=== PATIENT | male | born 1980 | race Two or more races ===

== ENCOUNTER 2025-09-17 08:33 | Inpatient (IN) | payer MEDICAID, SELFPAY ==
[2025-09-17] VITALS (7 sets, daily range): BP systolic 96–121; BP diastolic 55–73; PULSE 56–88; RESP 15–18; TEMP 36.7–37.2; O2SAT 93–99; BMI 29.0
--- NOTE | 2025-09-17 | XR_ITS ---
Examination: MRI brain without intravenous contrast. Date and time of exam: September 17, 2025, 1600 hours INDICATIONS: Seizure episode today Technique: Multiple axial and sagittal images of the brain obtained. Siemens high-resolution 1.5 Alejandra short bore scanners utilized. Sagittal sections, T1-weighted, TR 500, TE 14, are performed. Axial sections proton-density and T2-weighted have been obtained. Inversion recovery axial images, TR 9, 260, TE 111, TI 2500. Diffusion weighted images, axial sections, TR 4800, TE 128, B value 1000 Axial sections, ADC map, TR 4800, TE 128 Findings: Enlargement of the sella turcica is not present. The optic chiasm and infundibular are not remarkable. Prepontine and interpeduncular cisterns are not enlarged. There is no localized enlargement of the medulla or brice. Fourth ventricle and cerebellar tonsils appear normal in position. No subacute area of hemorrhage density is seen. Mass in the cerebellopontine angle region is not evident. Globes symmetrical. Orbital musculature including medial lateral rectus muscles do not exhibit abnormality. Diffusion-weighted images demonstrate no focus of restricted diffusion. Increased white matter signal evident, multiple punctate foci of increased signal in the white matter Mass effect upon the ventricular system is not identified. Impression: Negative for acute hemorrhage mass effect or midline shift No acute infarct. Multiple punctate foci increased signal in the white matter, demyelinating disease
--- NOTE | 2025-09-17 08:39 | PD.EDSEIZ ---
ED Seizures RME/HPI General Chief Complaint: Seizure Stated Complaint: SEIZURES Time Seen by Provider: 09/17/25 08:40 Arrival date/time: 09/17/25 08:33 RME / HPI RME / HPI Narrative: DR. SELF MAIN ED EVALUATION: 45-year-old male with no prior medical history and no history of seizures presents to the Emergency Department after a witnessed seizure at work. The patient?s witnessed the event, stating that as soon as he started working, he grabbed his head, became unresponsive, and began shaking. She assisted him to the ground and noted generalized shaking lasting 3?4 minutes, during which he bit his tongue, resulting in bleeding. No trauma aside from the tongue bite. Per , the patient stopped breathing for approximately 2?3 minutes, and she performed chest compressions until EMS arrived, no known loss of pulses. EMS found the patient with pulses and postictal. The patient is currently awake, alert, and complaining of nausea and dizziness. Denies headache, vision changes, chest pain, shortness of breath, recent illness, drug use, or head trauma. No daily medications and no known allergies. Related Data Allergies Allergy/AdvReac Type Severity Reaction Status Date / Time No Known Allergies Allergy Unverified 09/17/25 17:05 Review of Systems Review of Systems Systems Reviewed: All systems reviewed, normal except as documented ED Exam Narrative Physical exam: GENERAL APPEARANCE: alert and oriented x 4, well-developed, well-nourished, no acute distress VITALS: All vitals were reviewed and the pulse ox is 98% on room air, which is normal according to my interpretation. HEENT: Normocephalic, atraumatic; pupils equal, round, reactive to light; EOMI; mucous membranes pink, moist; oropharynx clear NECK: Supple LUNGS: CTABL; no wheezes, no rales, no rhonchi HEART: Regular rate and rhythm; 1/6 systolic murmur heard at the left upper sternal border (LUSB); no gallops or rubs ABDOMEN: non distended; normal BS; soft, no tenderness, no guarding, no rebound; no masses, no organomegaly, no hernia BACK: no CVA tenderness EXTREMITIES: atraumatic; no edema NEUROLOGIC: awake; alert and oriented x4; cranial nerves II-XII grossly intact; no focal sensory or motor deficits PSYCHIATRIC: appropriate mood and affect SKIN: warm, dry, normal color; no rashes Course Quality Measures none Orders Category Date Time Status Admit to Inpatient Status Routine Admission 09/17/25 16:51 Active Patient Condition Routine Admission 09/17/25 16:51 Ordered Aspiration precautions ONCE Care 09/17/25 16:58 Active 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 NOW Care 09/17/25 08:59 Active EKG (ED ONLY) *Do not use* NOW Care 09/17/25 08:40 Completed MRI Screening NOW Care 09/17/25 15:54 Active MRI Screening NOW Care 09/17/25 16:25 Active Neuro Check Q4H START 00 Care 09/17/25 16:56 Active Notify provider NEEDED Care 09/17/25 16:51 Active Seizure precautions NOW Care 09/17/25 16:58 Active Consult to Neurology / Tele-Neurology Stat Cons 09/17/25 15:[address] head/brain wo con Stat Exams 09/17/25 09:00 Completed EKG (ED Only) Stat Exams 09/17/25 08:40 Draft MR head/brain wo con Stat Exams 09/17/25 Taken XR chest 1V portable Stat Exams 09/17/25 08:59 Completed Alcohol, Blood Medical Stat Lab 09/17/25 09:34 Completed B-Type Natriuretic Peptide Stat Lab 09/17/25 09:34 Completed CBC AM DRAW Lab 09/18/25 05:00 Ordered CBC AM DRAW Lab 09/19/25 05:00 Ordered CBC AM DRAW Lab 09/20/25 05:00 Ordered CBC Stat Lab 09/17/25 09:34 Completed Comprehensive Metabolic Panel AM DRAW Lab 09/18/25 05:00 Ordered Comprehensive Metabolic Panel AM DRAW Lab 09/19/25 05:00 Ordered Comprehensive Metabolic Panel AM DRAW Lab 09/20/25 05:00 Ordered Comprehensive Metabolic Panel Stat Lab 09/17/25 09:34 Completed Drug Screen,Urine Stat Lab 09/17/25 09:27 Completed Lipase Stat Lab 09/17/25 09:34 Completed Lipid Panel AM DRAW Lab 09/18/25 05:00 Ordered Lipid Panel AM DRAW Lab 09/19/25 05:00 Ordered Lipid Panel AM DRAW Lab 09/20/25 05:00 Ordered Magnesium AM DRAW Lab 09/18/25 05:00 Ordered Magnesium AM DRAW Lab 09/19/25 05:00 Ordered Magnesium AM DRAW Lab 09/20/25 05:00 Ordered Magnesium Stat Lab 09/17/25 09:34 Completed Partial Thromboplastin Time Stat Lab 09/17/25 09:34 Completed Phosphorous AM DRAW Lab 09/18/25 05:00 Ordered Phosphorous AM DRAW Lab 09/19/25 05:00 Ordered Phosphorous AM DRAW Lab 09/20/25 05:00 Ordered Prothrombin Time with INR Stat Lab 09/17/25 09:34 Completed Troponin I Stat Lab 09/17/25 09:34 Completed Acetaminophen Tab [Tylenol Tab] Med 09/17/25 16:51 Active 650 mg PO Q6H PRN Acetaminophen Tab [Tylenol Tab] Med 09/17/25 16:56 Active 650 mg PO Q6H PRN HYDROcodone*/APAP 5/325 [Cameron 5/325] Med 09/17/25 16:56 Active 1 tab PO Q4HR PRN LORazepam [Ativan Inj] Med 09/17/25 15:19 Discontinued 2 mg .ROUTE .STK-MED ONE LORazepam [Ativan Inj] Med 09/17/25 17:04 Active 2 mg IVP Q5MIN PRN LORazepam [Ativan Inj] Med 09/17/25 15:23 Discontinued 2 mg IVP X1 ONE LORazepam [Ativan Inj] Med 09/17/25 17:03 Discontinued 2 mg IVP X1 ONE Ondansetron Inj [Zofran Inj] Med 09/17/25 16:56 Active 4 mg IVP Q6H PRN Ondansetron Inj [Zofran Inj] Med 09/17/25 09:00 Discontinued 4 mg IVP X1 ONE levETIRAcetam INJ [Keppra Inj] Med 09/17/25 15:24 Discontinued 1,000 mg IVP X1 ONE levETIRAcetam INJ [Keppra Inj] Med 09/17/25 16:09 Discontinued 1,000 mg IVP X1 ONE Code Status Routine Oth 09/17/25 16:51 Ordered EEG Awake and Drowsy Routine RT 09/17/25 15:25 Ordered Vital Signs Vital signs: Vital Signs Temperature 98.2 F 09/17/25 08:41 Pulse Rate 62 09/17/25 08:41 Respiratory Rate 18 09/17/25 08:41 Blood Pressure 104/62 09/17/25 08:41 Pulse Oximetry (%) 98 09/17/25 08:41 Oxygen Delivery Method Room Air 09/17/25 08:41 Seizure MDM Narrative MDM Narrative:: I, Christine Booker, am scribing for and in the presence of Dr. Self. 1520: Patient was going to be discharged when he had another seizure. Will be admitted. Patient data External records reviewed:: EMS form Clinical information provided by:: patient, EMS and spouse Social determinants that could affect healthcare access:: none Patient has the following chronic illnesses:: Denies any PMHx, surgeries, daily medications, or known allergies. No history of seizures. How is presenting disease/condition affected by chronic disease/condition?: no chronic disease Evaluation data The following diagnostics were reviewed and interpreted by me:: lab results, radiology exam(s) and EKG tracing(s) (My interpretation: EKG performed at 0848 hours, sinus rhythm, rate 68, no acute ischemic changes) Lab and/or radiology exams considered but not ordered:: none Interpretation Summary: Procedure(s): CT head/brain wo con Accession Number(s): [id number] cc: Dieudonne Flor MD; Gaye Self MD; Andrey Jauregui PA-C~ Examination: CT brain head without contrast. 2-D sagittal coronal reconstructions Date and time of exam: September 17, 2025, 0915 hours INDICATIONS: Seizure this morning with vomiting CTDI: vol (mGy): 51.5 DLP: (mGycm): 973 Technique: Multiple CT axial sections of the brain have been obtained, 5 mm slice thickness. Contrast has not been administered. 2-D sagittal, coronal reconstructions have been obtained Low dose protocols were performed. One or more of the following dose reduction techniques were used; automated exposure control, adjustment of the mA and/or KV according to patient size, use of iterative reconstruction technique. Findings: No significant ventricular enlargement. Intra-axial or extra-axial hemorrhage density is not seen. No mass effect or midline shift Basal cisterns are not remarkable. Fourth ventricle is midline. Cranial vault intact. Significant chronic sinusitis Impression: Negative for acute hemorrhage, mass effect or midline shift As clinically warranted, consider elective brain MRI follow-up, seizure protocol, pre and postcontrast Dictated By: Dieudonne Flor MD Procedure(s): XR chest 1V portable Accession Number(s): [id number] cc: Dieudonne Flor MD; Gaye Self MD; Andrey Jauregui PA-C~ EXAMINATION: AP chest single view TECHNIQUE: AP portable upright chest single view Date and time: September 17, 2025, 0927 hours, comparison May 24, 2015. INDICATIONS: Chest pain shortness of breath today. FINDINGS: Minor prominence left ventricle. No pneumonia or pulmonary edema. The osseous structures are intact. IMPRESSION: No pneumonia or pulmonary edema Dictated By: Dieudonne Flor MD Medications / Prescriptions Medications or Prescriptions considered but not ordered:: none Medication administrations:: Medication Administration History Acetaminophen (Acetaminophen 325 Mg Tablet) 650 mg PO Q6H PRN PRN Reason: Fever >101.5 Stop: 10/17/25 16:50 Acetaminophen (Acetaminophen 325 Mg Tablet) 650 mg PO Q6H PRN PRN Reason: PAIN SCALE 1-3 (mild Stop: 10/17/25 16:55 Hydrocodone Bitart/Acetaminophen (Hydrocodone/Apap 5/325 Tablet) 1 tab PO Q4HR PRN PRN Reason: PAIN SCALE 4-6 (Moderate Stop: 09/22/25 16:55 Lorazepam (Lorazepam 2 Mg/Ml Vial) 2 mg IVP Q5MIN PRN PRN Reason: seizure Ondansetron HCl (Ondansetron Inj 2 Mg/Ml Inj 2 Ml) 4 mg IVP Q6H PRN; Protocol PRN Reason: NAUSEA OR VOMITING Stop: 10/17/25 16:55 Discontinued Medications Levetiracetam (Levetiracetam Inj 100 Mg/Ml Vial 5ml) 1,000 mg IVP X1 ONE Stop: 09/17/25 15:25 Last Admin: 09/17/25 15:48 Dose: 1,000 mg Documented By: ED Levetiracetam (Levetiracetam Inj 100 Mg/Ml Vial 5ml) 1,000 mg IVP X1 ONE Stop: 09/17/25 16:10 Last Admin: 09/17/25 16:19 Dose: 1,000 mg Documented By: ED Lorazepam (Lorazepam 2 Mg/Ml Vial) Confirm Administered Dose 2 mg .ROUTE .STK-MED ONE Stop: 09/17/25 15:20 Last Admin: 09/17/25 15:25 Dose: Not Given Documented By: LF Non-Admin Reason: Duplicate Medication on eMAR Lorazepam (Lorazepam 2 Mg/Ml Vial) 2 mg IVP X1 ONE Stop: 09/17/25 15:24 Last Admin: 09/17/25 15:24 Dose: 2 mg Documented By: LF Lorazepam (Lorazepam 2 Mg/Ml Vial) 2 mg IVP X1 ONE Stop: 09/17/25 17:04 Ondansetron HCl (Ondansetron Inj 2 Mg/Ml Inj 2 Ml) 4 mg IVP X1 ONE; Protocol Stop: 09/17/25 09:01 Last Admin: 09/17/25 09:28 Dose: 4 mg Documented By: ED see above if any Consultations Consultation(s) initiated? (list below): Yes Consultation #1 (Physician, Specialty, Details): Discussed test HPI, PMHx, lab, radiology results and/or management with resident working with the hospitalist. Will admit for further evaluation and management. Accepts patient for admission. Time: 16:51 Diagnosis Seizure Differential Diagnosis: other (New-onset seizure, intracranial pathology (e.g., mass or bleed), and syncope with convulsive activity.) Most likely diagnosis given after review of the tests above:: New onset seizures Admission Indicated Admission indicated?: indicated Admission Request Was there a request for admission?: Yes Admission Attestation Admission request attestation: Discussed case with [] from Hospitalist service regarding admission. Discussed patients ED course, exam findings, labs, and radiology results. The Hospitalist [agrees,declines] to accept the patient for admission. Disposition Plan Disposition Plan: Admit Discharge Plan Plan Patient Disposition: Admit Acute Care w/in Hospital Prescriptions/Referrals Referrals: Jassi Law MD [Physician, Neurology] Andrey Jauregui PA-C [Primary Care Provider] - In 1 week Problem List Clinical Impression: New onset seizure Patient/Caregiver Discharge Instructions Education Materials: ED Seizure New Onset Unknown ... Print Language: Nepali Stand Alone Forms: Camila Award Info., Patient Portal Info Letter
--- NOTE | 2025-09-17 08:40 | EKG_ITS ---
[facility] Test Date: 2025-09-17 Pat Name: JOSE CARTER Department: Room: - Gender: Male [employer]: : 1980 Requested By: Gaye Swain Order Number: [id number] Reading MD: Gaye Swain Measurements Intervals Rheems Rate: 68 P: 51 WY: 171 QRS: 37 QRSD: 100 T: 11 QT: 418 QTc: 445 Interpretive Statements SINUS RHYTHM No previous ECG available for comparison /store/S0/[id number]/ecg/[id number].pdf
--- NOTE | 2025-09-17 08:44 | PC.NURSE ---
Pt. here from work to room 2, per EMS pt. had a seizure at work. Pt. holding his head stating he has nausea. Pt. eyes are red, the left more than the right.
--- NOTE | 2025-09-17 08:58 | PC.NURSE ---
Dr. Self is bedside talking with pt. and pt.'s , pt. holding his head stating he is dizzy, pt. states his head hurts and he feels something in his brain. Pt. states she was behind pt. at work at pt. started grabbing his head stating his head hurt, states pt. then went down to the ground and started convulsing, states pt. brother has seizures so they recognize it, states pt.'s Mother also has epilepsy. states pt. bit his tongue and his tongue was bleeding.
--- NOTE | 2025-09-17 08:59 | XR_ITS ---
EXAMINATION: AP chest single view TECHNIQUE: AP portable upright chest single view Date and time: September 17, 2025, 0927 hours, comparison May 24, 2015. INDICATIONS: Chest pain shortness of breath today. FINDINGS: Minor prominence left ventricle. No pneumonia or pulmonary edema. The osseous structures are intact. IMPRESSION: No pneumonia or pulmonary edema
--- NOTE | 2025-09-17 09:00 | XR_ITS ---
Examination: CT brain head without contrast. 2-D sagittal coronal reconstructions Date and time of exam: September 17, 2025, 0915 hours INDICATIONS: Seizure this morning with vomiting CTDI: vol (mGy): 51.5 DLP: (mGycm): 973 Technique: Multiple CT axial sections of the brain have been obtained, 5 mm slice thickness. Contrast has not been administered. 2-D sagittal, coronal reconstructions have been obtained Low dose protocols were performed. One or more of the following dose reduction techniques were used; automated exposure control, adjustment of the mA and/or KV according to patient size, use of iterative reconstruction technique. Findings: No significant ventricular enlargement. Intra-axial or extra-axial hemorrhage density is not seen. No mass effect or midline shift Basal cisterns are not remarkable. Fourth ventricle is midline. Cranial vault intact. Significant chronic sinusitis Impression: Negative for acute hemorrhage, mass effect or midline shift As clinically warranted, consider elective brain MRI follow-up, seizure protocol, pre and postcontrast
--- NOTE | 2025-09-17 09:08 | PC.LAC ---
Pt. sitting up in bed vomiting, pt. vomited in 2 blue bags, pt. states he's dizzy when he moves. Small amount of blood noted on pt.'s mouth.
[2025-09-17] MEDS: ONDANSETRON INJ 2 MG/ML INJ 2 ML 4 MG IVP (09:28)
[2025-09-17 09:40] LABS: Basophils # (Auto) 0.0 Thou/mm3 (0.0-0.2); Basophils % (Auto) 0 % (0-2.5); Eosinophils # (Auto) 0.2 Thou/mm3 (0.0-0.5); Eosinophils % (Auto) 2 % (0-10); Hematocrit 43.6 % (41.0-53.0); Hemoglobin 14.9 g/dL (13.5-16.0); Immature Granulocytes Auto 0.04 Thou/mm3 (0.00-0.00); Lymphocytes # (Auto) 1.6 Thou/mm3 (1.0-4.8); Lymphocytes % (Auto) 15 % (10-50); Mean Corpuscular HGB Conc 34.2 g/dl (31.0-37.0); Mean Corpuscular Hemoglobin 30.4 pg (25.0-35.0); Mean Corpuscular Volume 89 fL (80-100); Monocytes # (Auto) 0.5 Thou/mm3 (0.0-0.8); Monocytes % (Auto) 5 % (0-12); Neutrophils # (Auto) 8.3 Thou/mm3 (1.8-7.7); Neutrophils % (Auto) 78 % (37-80); Nucleated Red Blood Cell # 0.00 Thou/mm3 (0.00-0.00); Nucleated Red Blood Cell % 0 /100 WBC (0); Platelet Count 191 Thou/mm3 (140-440); RDW Standard Deviation 39.4 fL (35.1-43.9); Red Blood Count 4.90 Miln/mm3 (4.50-5.90); White Blood Count 10.6 Thou/mm3 (3.8-10.6)
[2025-09-17 09:53] LABS: Amphetamine/Methamp Scrn,U Negative (Negative); Barbiturate Screen,Urine Negative (Negative); Benzodiazepines Screen,Urine Negative (Negative); Benzoylecgonine Screen, Ur Negative (Negative); Fentanyl Screen,Urine Negative (Negative); Opiate Screen,Urine Negative (Negative); THC Screen,Urine Negative (Negative)
[2025-09-17 10:00] LABS: INR 1.0 (0.9-1.3); Partial Thromboplastin Time 25.6 Seconds (22.0-36.0); Prothrombin Time 10.9 Seconds (9.0-12.2)
[2025-09-17 10:01] LABS: B-Type Natriuretic Peptide < 20 pg/mL (0-100)
[2025-09-17 10:13] LABS: Alanine Aminotransferase 16 U/L (10-49); Albumin, Serum 4.5 gm/dL (3.5-5.0); Albumin/Globulin Ratio 2.0 (1.2-2.2); Alcohol, Blood Medical < 3.0 mg/dL (0-10.0); Alkaline Phosphatase 80 U/L (46-116); Anion Gap 11 (7-16); Aspartate Amino Transferase 18 U/L (0-34); BUN/Creatinine Ratio 12 Ratio (12-20); Bilirubin,Total 0.5 mg/dL (0.3-1.2); Blood Urea Nitrogen 11 mg/dL (9-23); Calcium 9.0 mg/dL (8.3-10.6); Calcium (Corrected) 9.0 mg/dL (8.5-10.1); Carbon Dioxide 26.6 mMol/L (20.0-31.0); Chloride 104 mMol/L (98-107); Creatinine (Component) 0.9 mg/dL (0.6-1.3); Estimated Creatinine Clearance 108.5 mL/min (>60); Globulin 2.3 gm/dL (2.3-3.5); Glucose 122 mg/dL (74-106); Lipase 24 U/L (12-53); Magnesium 2.0 mg/dL (1.6-2.6); Osmolality,Calculated 283 (275-295); Potassium 3.7 mMol/L (3.4-5.1); Sodium 142 mMol/L (136-145); Total Protein 6.8 gm/dL (5.7-8.2); Troponin I < 0.002 ng/mL (0.0-0.045); eGFR > 60 See Note
--- NOTE | 2025-09-17 15:23 | PC.NURSE ---
Pt. having a seizure, spouse turned pt. on his right side, Dr. Clair solomon.
[2025-09-17] MEDS: LORazepam 2 MG/ML VIAL IVP (15:24)
--- NOTE | 2025-09-17 15:24 | PC.NURSE ---
Pt.'s spouse states pt. grabbed his head and told her he could feel the same thing again happening that happened this morning.
[2025-09-17] MEDS: levETIRAcetam INJ 100 MG/ML VIAL 5ML 1000 MG IVP ×2 (15:48→16:19)
--- NOTE | 2025-09-17 15:50 | PC.NURSE ---
Dr. Gregg Mayes tele neurologist on tele monitor talking to pt. and pt.'s . Pt. is very lethargic.
--- NOTE | 2025-09-17 16:14 | PD.TNEURO ---
Tele Neuro Consultation Consultation Date 09/17/25 Most Recent Vital Signs Last Vital Signs Temp 98.7 F 09/17/25 14:47 Pulse 88 09/17/25 16:05 Resp 16 09/17/25 16:05 BP 107/61 09/17/25 16:05 Pulse Ox 99 09/17/25 16:05 O2 Del Method Oxy Mask 09/17/25 16:05 O2 Flow Rate 10 09/17/25 16:05 Laboratory-Coagulation Panel PT 10.9 Seconds (9.0-12.2) 09/17/25 09:34 INR 1.0 (0.9-1.3) 09/17/25 09:34 APTT 25.6 Seconds (22.0-36.0) 09/17/25 09:34 Consultation Narrative [facility] TeleNeurology Consult Services Stat Consult Patient Name:???Lan Birmingham Date of :???1980 Identification Number:??? Date of Service:???09/17/2025 15:34:32 Diagnosis:?G40.89 - Other seizures Impression 45 year old previously healthy man with a strong family history of epilepsy in his mother and his brother for whom neurology is consulted for evaluation of first time seizure. He suffered two events of seizures with left hemispheric localizations based on provided semiology today. He remains post-ictal currently. He has thus far received 2mg of IV Ativan and now s/p 2000mg IV Keppra. He will require inpatient admission as well as routine EEG to better evaluate as well as overnight monitoring for further breakthrough seizure activity. Recommendations: -q4 vitals/neurochecks -seizure precautions -ativan 2mg IV for GTC >2 min or >2 seizures in 1 hour -avoid seizure threshold lowering medications such as cefepime, quinolones, tramadol, imipenem, and wellbutrin -Given first time seizure, can hold off on maintenance antiseizure medications at this time -Should he suffer another breakthrough seizure, would load with another 2000mg of IV Keppra and start maintenance Keppra 750mg BID -For any continued seizure activity not responding to above, please follow hospital status epilepticus protocol -MRI Brain w/ and w/o contrast -Routine EEG -Telemetry monitoring -no driving for duration indicated by state/local law following episode of altered consciousness of unexplained origin or seizure -page neurology for breakthrough seizure activity -neurology follow up recommended Recommendations: Our recommendations are outlined below. Advanced Imaging: Advanced Imaging Deferred because: Stroke not suspected with clinical presentation and exam Metrics: Dispatch Time: 09/17/2025 15:34:32 Callback Response Time: 09/17/2025 15:35:28 Primary Provider Notified of Diagnostic Impression and Management Plan on: 09/17/2025 16:07:47 CT HEAD: I personally reviewed all the CT images that were available to me and it showed:?No hemorrhage, mass, lesion, or obvious acute ischemia ImagingReviewed LabsReviewed Chief Complaint: Seizure History of Present Illness:Patient is a 45 year old Male. Lan Carter is a 45 year old previously healthy man with a strong family history of epilepsy in his mother and his brother who presents to the hospital for evaluation of first time seizures. Symptom onset this morning around 0730 where patient suffered an episode of severe head pain followed by rightward head versive movements followed by generalized tonic clonic seizure activity lasting 2-3 minutes before self resolving. EMS was summoned and patient brought to ED by which time he was mostly back to baseline. Unfortunately, during his ED stay he suffered another episode of the same after which he is now post-ictal. He has thus far received 2mg of IV Ativan and 1mg of IV Keppra. There is no history of the same. No significant history of head injury or concussion. No history of meningitis. His behaviors have been normal lately. Past Medical History: Other PMH:? Denies Medications: No Anticoagulant use? No Antiplatelet use Reviewed EMR for current medications Allergies:? Reviewed Social History: Drug Use: No Family History: There is no family history of premature cerebrovascular disease pertinent to this consultation ROS : 14 Points Review of Systems was performed and was negative except mentioned in HPI. Past Surgical History: There Is No Surgical History Contributory To Today?s Visit Examination: BP(111/65),?Pulse(56),?Blood Glucose(122) Neuro Exam: General:?Somnolent, does not follow commands, moving all extremities spontaneously and equally antigravity semi-purposefully Speech:?Dysarthric: JUAN R due to AMS Language:?Intact: JUAN R due to AMS Face:?Symmetric: Facial Sensation:?Intact: JUAN R due to AMS Visual Morales:?Intact: JUAN R due to AMS Extraocular Movements:?Intact: Motor Exam:?No Drift: Sensation:?Intact: JUAN R due to AMS Coordination:?Intact: Spoke with :?ED Attending MD This consult was conducted in real time using interactive audio and video technology. Patient was informed of the technology being used for this visit and agreed to proceed. Patient located in hospital and provider located at home/office setting. Patient is being evaluated for possible acute neurologic impairment and high probability of imminent or life - threatening deterioration.I spent total of 35 minutes providing care to this patient, including time for face to face visit via telemedicine, review of medical records, imaging studies and discussion of findings with providers, the patient and / or family. Dr Gregg Mayes [facility] For Inpatient follow-up with [facility] physician please call [facility] at . As we are not an outpatient service for any post hospital discharge needs please contact the hospital for assistance. If you have any questions for the [facility] physicians or need to reconsult for clinical or diagnostic changes please contact us via [facility] at . Non-radiologist review of imaging performed to assist with emergent clinical decision-making. Remote physician workstations do not possess the same resolution, calibration, or diagnostic capabilities as hospital-based radiology reading stations, and formal radiologist read is necessary. Signature :?Gregg Mayes
--- NOTE | 2025-09-17 16:23 | PC.NURSE ---
Dr. Adams bedside talking with pt.'s .
--- NOTE | 2025-09-17 16:38 | PD.RESHP ---
Documentation for date of: 09/17/25 [facility] History of Present Illness Chief complaint: Witnessed Seizures History of present illness: History of present illness: Patient is a 45-year-old male with with past medical history of previous anxiety presenting to the ED on 09/17/2025 for a witnessed seizure. Per , patient was going to work around 730, then fell on the ground stating that his head hurt, and then had a 3 to 4-minute generalized tonic-clonic seizure with lip and tongue biting. performed CPR until ambulance arrived, at which point he was transported to ED. Patient has no past medical history of seizures; he has a family history of seizures in his brother (diagnosis in his 20s), mother (diagnosed in childhood), and son (absence seizures, since resolved). ED course: Patient was ANO x 4 upon reaching the ED, and was ready for discharge. However, at 1520, had another witnessed seizure with severe head pain and right head movement followed by generalized tonic-clonic seizure; patient was given 1 mg Keppra and 2 mg Ativan. Patient was subsequently given an additional 1 mg Keppra to make a 2 mg loading dose. Patient was then admitted for multiple witnessed seizures. PMH: Previous anxiety PSH: Vasectomy Allergies: NKDA Social history: No smoking, drug use; social drinker Review of Systems Review of Systems Narrative Review of Systems: General: Denies fevers or chills HEENT: Endorses tongue and lip biting Heart: Denies chest pain or palpitations Lungs: Denies shortness of breath or cough Abdomen: Denies diarrhea, nausea or vomiting, constipation, BRBPR, melena Genitourinary: Denies frequency, urgency, dysuria, hematuria Musculoskeletal: Denies joint pain, denies muscular pain Neurology: Endorses 2 seizures today ROS otherwise negative except what is mentioned above. Exam Vital Signs Temp Pulse Resp BP Pulse Ox O2 Del Method O2 Flow Rate 98.7 F 88 16 107/61 99 Oxy Mask 10 09/17/25 14:47 09/17/25 16:05 09/17/25 16:05 09/17/25 16:05 09/17/25 16:05 09/17/25 16:05 09/17/25 16:05 Narrative Exam General: A/O x3, but postictal and very drowsy, well-nourished, well-developed Eyes: PERRL, EOMI. Anicteric, vision grossly intact. Ears: No ear pain, no ear discharge, Hearing grossly intact. Nose: No nasal discharge. Mouth/Throat: Moist mucous membranes, no redness, right tongue wound, lip wound secondary to biting Neck: Neck supple, non-tender, no cervical lymphadenopathy. Lungs: Clear HARJINDER to auscultation and percussion, No accessory muscle use. Cardio: Normal S1/S2, regular rhythm, no murmurs, no JVD or carotid bruits. Abdomen: Soft, non-tender, no palpable masses, peristalsis present, no guarding or rebound. Extremities: Symmetrical, no significant deformities, no peripheral edema , non-tender, peripheral pulses present. Skin: No rashes, no lesions, warm to touch. Neuro: No focal neurological deficits. Postictal. Psych: Cooperative; drowsy and postictal. Results: Labs 09/18/25 05:40 09/18/25 05:40 Labs: Short CBC 09/17/25 Range/Units 09:34 WBC 10.6 (3.8-10.6) Thou/mm3 Hgb 14.9 (13.5-16.0) g/dL Hct 43.6 (41.0-53.0) % Plt Count 191 (140-440) Thou/mm3 BMP 09/17/25 09:34 Sodium 142 Potassium 3.7 Chloride 104 Carbon Dioxide 26.6 BUN 11 Creatinine 0.9 Glucose 122 H Calcium 9.0 Cardiac Enzymes 09/17/25 Range/Units 09:34 Troponin I < 0.002 (0.0-0.045) ng/mL Liver Function 09/17/25 Range/Units 09:34 Total Bilirubin 0.5 (0.3-1.2) mg/dL AST 18 (0-34) U/L ALT 16 (10-49) U/L Alkaline Phosphatase 80 (46-116) U/L Albumin 4.5 (3.5-5.0) gm/dL Quality Measures Quality Measures none Medications Home Medications and Allergies Home Medications ?Medication ?Instructions ?Recorded ?Confirmed ?Type No Known Home Medications 09/17/25 09/17/25 History Allergies Allergy/AdvReac Type Severity Reaction Status Date / Time No Known Allergies Allergy Unverified 09/17/25 17:05 Visit Medications Discontinued Medications Levetiracetam (Levetiracetam Inj 100 Mg/Ml Vial 5ml) 1,000 mg IVP X1 ONE Stop: 09/17/25 15:25 Last Admin: 09/17/25 15:48 Dose: 1,000 mg Levetiracetam (Levetiracetam Inj 100 Mg/Ml Vial 5ml) 1,000 mg IVP X1 ONE Stop: 09/17/25 16:10 Last Admin: 09/17/25 16:19 Dose: 1,000 mg Lorazepam (Lorazepam 2 Mg/Ml Vial) 2 mg IVP X1 ONE Stop: 09/17/25 15:24 Last Admin: 09/17/25 15:24 Dose: 2 mg Ondansetron HCl (Ondansetron Inj 2 Mg/Ml Inj 2 Ml) 4 mg IVP X1 ONE; Protocol Stop: 09/17/25 09:01 Last Admin: 09/17/25 09:28 Dose: 4 mg Assessment & Plan Plan Patient is a 45-year-old male with past medical history of previous anxiety presenting to the ED on 09/17/2025 for 1 witnessed seizure at 7:30 AM on 09/17/2025. 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 CT head showed no masses, hemorrhage, or midline shift. MRI with contrast showed multiple punctate foci suggestive of demyelinating disease. Patient has been given 2 mg Keppra and 2 mg Ativan. Plan: Teleneurology consulted, thank you for recommendations? q4 vitals/neurochecks, seizure precautions, ativan 2mg IV for GTC >2 min or >2 seizures in 1 hour, avoid seizure threshold lowering medications, if another breakthrough seizure, load with another 2000mg of IV Keppra and start maintenance Keppra 750mg BID, for continued seizure activity not responding to above, please follow hospital status epilepticus protocol Routine EEG In-house neurology consulted, appreciate recommendations #History of anxiety Previous history of anxiety; took meds in the past, no longer taking Plan: Follow up outpatient if necessary Disposition: Tele DVT prophylaxis: Heparin subcu 5000 every 8 hours GI prophylaxis: Diet: N.p.o. Lines: PIV CODE STATUS: Full This case was discussed with my attending physician, Dr. Crouch, and senior resident, Dr. Lara. Hira Adams MD-PhD, PGY1 Attending Provider Attestation/Addendum I, Pam Crouch DO, attest that I was physically present for the gar portions of the service and evaluated the patient with the resident and I reviewed and discussed the case with the resident and agree with the resident's findings and plans of care as documented above Patient is a 45yo male with no known pmhx who was BIBA after new onset seizure. Patient has a strong family hx of epilepsy including his mother (onset as child) and brother (onset in 20s). History was obtained from at bedside and ED physician. stated that the patient was noted to hold his head while they drove together to the [place] this morning. 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 She states he did not complain of any blurry vision, dizziness, headache or discomfort at the time. Upon arriving to the [place], patient was standing and held his head again. Shortly after, patient became rigid and fell to his knees, followed by a generalized tonic-clonic seizure that lasted about 2 minutes reportedly. Patient's stated that she attempted chest compressions. In the ED, patient received ativan and IV fluids. Per , patient has never had a seizure. He does not smoke or do any recreational drugs. He drinks socially, max 1-2 beers each time. Patient's son reportedly had nonfocal/ absence seizures diagnosed 6 years old as well. He had told his that he had heard some noises prior to having seizures and that is the reason why he held his head. Per ED, patient also had reported a headache. Patient had a second witnessed tonic clonic seizure in the ED after about 6.5 hrs of observation. Seizure broke with ativan. teleneuro was consulted and recommends MRI, EEG and loading patient with 2 g of keppra. It is also recommended to start patient on keppra 750mg IV BID. Patient was postictal at time of my evaluation. He was able to open eyes to verbal and tactile stimuli. He was able to follow some commands with prompting. He is moving all four extremities spontaneously. Pupils are dilated, but reactive to light. Mild nystagmus noted upon right gaze. Will admit to telemetry for new onset seizures. Will place on seizure and aspiration precautions. 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 Advised that from here on out, patient is not to drive or operate any heavy machinery. He is also not to climb on any ladders due to seizures. He will ultimately need neurology clearance. Will f/u with MRI and EEG.
--- NOTE | 2025-09-17 16:46 | PC.NURSE ---
Gama from MRI called stating that pt. was pulling at the lead by his head so he was bringing him back to bed 2, he states pt. is unable to hold still for MRI.
[2025-09-17] MEDS: levETIRAcetam INJ 100 MG/ML VIAL 5ML 750 MG IVP (20:55)
[2025-09-18] VITALS: BP 121/71; PULSE 61; PULSE 71; RESP 16; TEMP 36.6; O2SAT 95
[2025-09-18 04:00] VITALS: BP 100/73; PULSE 62; PULSE 65; RESP 18; TEMP 36.9; O2SAT 99
[2025-09-18 05:47] VITALS: BMI 30.4
[2025-09-18 06:29] LABS: Basophils # (Auto) 0.0 Thou/mm3 (0.0-0.2); Basophils % (Auto) 0 % (0-2.5); Eosinophils # (Auto) 0.1 Thou/mm3 (0.0-0.5); Eosinophils % (Auto) 2 % (0-10); Hematocrit 43.3 % (41.0-53.0); Hemoglobin 14.3 g/dL (13.5-16.0); Immature Granulocytes Auto 0.03 Thou/mm3 (0.00-0.00); Lymphocytes # (Auto) 1.4 Thou/mm3 (1.0-4.8); Lymphocytes % (Auto) 19 % (10-50); Mean Corpuscular HGB Conc 33.0 g/dl (31.0-37.0); Mean Corpuscular Hemoglobin 30.0 pg (25.0-35.0); Mean Corpuscular Volume 91 fL (80-100); Monocytes # (Auto) 0.6 Thou/mm3 (0.0-0.8); Monocytes % (Auto) 7 % (0-12); Neutrophils # (Auto) 5.5 Thou/mm3 (1.8-7.7); Neutrophils % (Auto) 72 % (37-80); Nucleated Red Blood Cell # 0.00 Thou/mm3 (0.00-0.00); Nucleated Red Blood Cell % 0 /100 WBC (0); Platelet Count 195 Thou/mm3 (140-440); RDW Standard Deviation 41.1 fL (35.1-43.9); Red Blood Count 4.77 Miln/mm3 (4.50-5.90); White Blood Count 7.6 Thou/mm3 (3.8-10.6)
[2025-09-18 06:42] LABS: Alanine Aminotransferase 13 U/L (10-49); Albumin, Serum 4.2 gm/dL (3.5-5.0); Albumin/Globulin Ratio 1.8 (1.2-2.2); Alkaline Phosphatase 77 U/L (46-116); Anion Gap 10 (7-16); Aspartate Amino Transferase 17 U/L (0-34); BUN/Creatinine Ratio 12 Ratio (12-20); Bilirubin,Total 0.9 mg/dL (0.3-1.2); Blood Urea Nitrogen 12 mg/dL (9-23); Calcium 8.7 mg/dL (8.3-10.6); Calcium (Corrected) 8.7 mg/dL (8.5-10.1); Carbon Dioxide 27.9 mMol/L (20.0-31.0); Chloride 105 mMol/L (98-107); Creatinine (Component) 1.0 mg/dL (0.6-1.3); Estimated Creatinine Clearance 95.2 mL/min (>60); Globulin 2.3 gm/dL (2.3-3.5); Glucose 108 mg/dL (74-106); Magnesium 2.3 mg/dL (1.6-2.6); Osmolality,Calculated 285 (275-295); Phosphorous 2.9 mg/dL (2.4-5.1); Potassium 3.6 mMol/L (3.4-5.1); Sodium 143 mMol/L (136-145); Total Protein 6.5 gm/dL (5.7-8.2); eGFR > 60 See Note
[2025-09-18 08:00] VITALS: BP 111/71; PULSE 65; PULSE 67; RESP 17; TEMP 37.4; O2SAT 98
[2025-09-18] MEDS: levETIRAcetam INJ 100 MG/ML VIAL 5ML 750 MG IVP ×2 (09:52→21:11)
--- NOTE | 2025-09-18 09:52 | RESP.EEG ---
Dr Crouch notified off being short staffed andd EEG not being completed during day shift 09/18. will be completed by NOC
--- NOTE | 2025-09-18 11:13 | ESPR_ITS ---
<Statement entered by Patel Felix MD - 09/19/25 15:53> I reviewed above note and agree with findings and plans. I have also personally examined the patient with medicine team and went over assessment and plan with medical team including internet database specialist and resident physician. Documentation for date of: 09/18/25 Subjective Subjective Interval history: The patient was seen at the bedside. There were no acute events overnight. The patient denies chest pain, shortness of breath, abdominal pain, nausea, vomiting, or dizziness. Vitals and labs were reviewed, and no significant abnormalities were noted. Patient has been advised not to drive or use ladders until cleared by outpatient neurology. The patient reports being born at full term with no significant childhood hospitalizations or brain infections. This is the first occurrence of seizures, which happened yesterday. Await consultation with Dr. Law tomorrow, if available. An EEG is scheduled for today. If the EEG is normal and there are no further complications, the patient may be considered for discharge, with follow-up through outpatient neurology. Exam Vital Signs Temp Pulse Resp BP Pulse Ox O2 Del Method O2 Flow Rate 99.3 F 65 17 111/71 98 Room Air 10 09/18/25 08:00 09/18/25 08:00 09/18/25 08:00 09/18/25 08:00 09/18/25 08:00 09/18/25 08:00 09/18/25 08:00 Narrative Exam General: A/O x3, but postictal and very drowsy, well-nourished, well-developed Eyes: PERRL, EOMI. Anicteric, vision grossly intact. Ears: No ear pain, no ear discharge, Hearing grossly intact. Nose: No nasal discharge. Mouth/Throat: Moist mucous membranes, no redness, right tongue wound, lip wound secondary to biting Neck: Neck supple, non-tender, no cervical lymphadenopathy. Lungs: Clear HARJINDER to auscultation and percussion, No accessory muscle use. Cardio: Normal S1/S2, regular rhythm, no murmurs, no JVD or carotid bruits. Abdomen: Soft, non-tender, no palpable masses, peristalsis present, no guarding or rebound. Extremities: Symmetrical, no significant deformities, no peripheral edema , non-tender, peripheral pulses present. Skin: No rashes, no lesions, warm to touch. Neuro: No focal neurological deficits. Postictal. Psych: Cooperative; drowsy and postictal. Objective Labs 09/18/25 05:40 09/18/25 05:40 Labs: Laboratory Results - last 24 hr 09/18/25 05:40 WBC 7.6 RBC 4.77 Hgb 14.3 Hct 43.3 MCV 91 MCH 30.0 MCHC 33.0 RDW Std Deviation 41.1 Plt Count 195 Neut % (Auto) 72 Lymph % (Auto) 19 Stevens % (Auto) 7 Eos % (Auto) 2 Baso % (Auto) 0 Neut # (Auto) 5.5 Lymph # (Auto) 1.4 Stevens # (Auto) 0.6 Eos # (Auto) 0.1 Baso # (Auto) 0.0 Immature Gran # (Auto) 0.03 H Absolute Nucleated RBC 0.00 Immature Gran % 0 Nucleated RBC % 0 Sodium 143 Potassium 3.6 Chloride 105 Carbon Dioxide 27.9 Anion Gap 10 BUN 12 Creatinine 1.0 Estim Creat Clear Calc 95.2 eGFR > 60 BUN/Creatinine Ratio 12 Glucose 108 H Calculated Osmolality 285 Calcium 8.7 Corrected Calcium 8.7 Phosphorus 2.9 Magnesium 2.3 Total Bilirubin 0.9 AST 17 ALT 13 Alkaline Phosphatase 77 Total Protein 6.5 Albumin 4.2 Globulin 2.3 Albumin/Globulin Ratio 1.8 Quality Measures Quality Measures none Assessment & Plan Assessment Current Active Medications: Generic Name Dose Route Start Last Admin Trade Name Freq PRN Reason Stop Dose Admin Acetaminophen 650 mg 09/17/25 16:56 Acetaminophen 325 Mg Tablet PO 10/17/25 16:55 Q6H PRN PAIN SCALE 1-3 (mild Acetaminophen 650 mg 09/17/25 17:56 Acetaminophen 325 Mg Tablet PO 10/17/25 16:50 Q6H PRN Fever >100.4 Hydrocodone Bitart/Acetaminophen 1 tab 09/17/25 16:56 Hydrocodone/Apap 5/325 Tablet PO 09/22/25 16:55 Q4HR PRN PAIN SCALE 4-6 (Moderate Levetiracetam 750 mg 09/17/25 21:00 09/18/25 09:52 Levetiracetam Inj 100 Mg/Ml Vial 5ml IVP 10/17/25 20:59 750 mg BID RALEIGH Administration Lorazepam 2 mg 09/17/25 17:04 Lorazepam 2 Mg/Ml Vial IVP Q5MIN PRN seizure Ondansetron HCl 4 mg 09/17/25 16:56 Ondansetron Inj 2 Mg/Ml Inj 2 Ml IVP 10/17/25 16:55 Q6H PRN NAUSEA OR VOMITING Protocol Plan Patient is a 45-year-old male with past medical history of previous anxiety presenting to the ED on 09/17/2025 for 1 witnessed seizure at 7:30 AM on 09/17/2025. Patient is admitted on 09/17/2025 for 2 witnessed seizures. 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 The patient was administered 2g of Keppra and 2mg of Ativan for seizure control. A CT head scan was performed, showing no evidence of masses, hemorrhage, or midline shift. An MRI with contrast revealed multiple punctate foci, which are concerning for demyelinating disease. Plan: - Continue Keppra at 750mg BID. - Routine EEG to further evaluate the seizure activity. In-house neurology consulted, appreciate recommendations Health Maintenance: Disposition: Tele DVT prophylaxis: Heparin subcu 5000 every 8 hours GI prophylaxis: none Diet: regular Lines: PIV CODE STATUS: Full Case discussed with my attending Dr. Felix, and senior resident, Dr. Colton Jimenez MD PGY-1
[2025-09-18 12:00] VITALS: BP 106/61; PULSE 59; PULSE 63; RESP 16; TEMP 36.7; O2SAT 98
[2025-09-18 16:00] VITALS: BP 123/77; PULSE 63; PULSE 66; RESP 23; TEMP 36.1; O2SAT 98
--- NOTE | 2025-09-18 16:38 | PC.SS ---
Rounding note: EGD completed, discharging home 09/19/25. 45YO Male, reason for visit: WITNESSED SEIZURES ? Hay Chopper met with patient at bedside. Role and purpose of today?s contact was explained. Patient confirmed his demographic information and reports living with spouse. Patient?s spouse Elsa Sumner [phone] is his primary medical surrogate decisionmaker. Patient is independent with ADLs and independent with ambulation as well. PCP: Andrey Lombardi, unable to recall last appt. PHARMACY: [facility]. Patient requested to return home when medically clear. Next of kin: Spouse Elsa Sumner [phone] Discharge plan: Home, spouse to transport.
[2025-09-18 20:00] VITALS: BP 112/64; PULSE 58; PULSE 59; RESP 19; TEMP 37.1; O2SAT 98
--- NOTE | 2025-09-18 22:50 | RESP.EEG ---
EEG has been completed and is ready for MD interpretation
--- NOTE | 2025-09-18 23:12 | PD.NEUROPROG ---
Documentation for date of: 09/18/25 Subjective Subjective Interval history: Patient was seen in telemetry today. No new symptoms or recurrent seizure after admission. He does have positive family history of seizures in his mother and brother, being treated with antiepileptics. Denies any history of head trauma, seizures started or drug abuse. Exam - Neurology Vital Signs Temp Pulse Resp BP Pulse Ox O2 Del Method O2 Flow Rate 98.7 F 58 L 19 112/64 98 Room Air 10 09/18/25 20:00 09/18/25 20:00 09/18/25 20:00 09/18/25 20:00 09/18/25 20:00 09/18/25 20:00 09/18/25 16:00 Narrative Exam GENERAL APPEARANCE: Well hydrated, well-nourished in no acute distress. HEENT: Normocephalic, atraumatic, extraocular movements intact. Pupils: Equal reacting to light and accommodation NECK: Supple, no JVD or bruits. CARDIOVASULAR: Heart: S1, S2 heard, regular without S3-S4 or murmur no rubs or gallops. LUNGS/CHEST: Clear to auscultation bilaterally. No rails, rhonchi, or wheezing. Normal inspection. ABDOMEN: Soft, nontender, with normal bowel sounds. No pulsatile masses. No rebound, rigidity, or guarding. Normal inspection and palpation. EXTREMITIES: Normal inspection and palpation. No edema, clubbing or cyanosis. SKIN: Warm and dry without rashes. Normal inspection. MUSCULOSKELETAL: No cervical, thoracic, lumbar or midline bony tenderness. Normal inspection. NEURO: Alert, awake and oriented x3. Cranial nerves: II through XII grossly intact. Speech and language: Normal with no dysarthria or dysphasia. Motor system: Tone and bulk: Normal: Strength: 5 out of 5 in all 4 extremities; No pronator drift noted. Deep tendon reflexes: 2+ bilaterally symmetrical. Plantar reflex: Downgoing bilaterally. Sensory system: Intact to all modalities of sensation bilaterally. Coordination: Intact to [id number] and [id number] test bilaterally. No ataxia, no dysmetria, or dysdiadochokinesia noted. No intention tremors noted. Gait: Normal. Toe, heel, tandem walk all are normal. Romberg: Negative. No signs of meningeal irritation noted. PSYCHIATRIC: Normal mood and affect. Objective Labs 09/18/25 05:40 09/18/25 05:40 Labs: Laboratory Results - last 24 hr 09/18/25 05:40 WBC 7.6 RBC 4.77 Hgb 14.3 Hct 43.3 MCV 91 MCH 30.0 MCHC 33.0 RDW Std Deviation 41.1 Plt Count 195 Neut % (Auto) 72 Lymph % (Auto) 19 [place] % (Auto) 7 Eos % (Auto) 2 Baso % (Auto) 0 Neut # (Auto) 5.5 Lymph # (Auto) 1.4 [place] # (Auto) 0.6 Eos # (Auto) 0.1 Baso # (Auto) 0.0 Immature Gran # (Auto) 0.03 H Absolute Nucleated RBC 0.00 Immature Gran % 0 Nucleated RBC % 0 Sodium 143 Potassium 3.6 Chloride 105 Carbon Dioxide 27.9 Anion Gap 10 BUN 12 Creatinine 1.0 Estim Creat Clear Calc 95.2 eGFR > 60 BUN/Creatinine Ratio 12 Glucose 108 H Calculated Osmolality 285 Calcium 8.7 Corrected Calcium 8.7 Phosphorus 2.9 Magnesium 2.3 Total Bilirubin 0.9 AST 17 ALT 13 Alkaline Phosphatase 77 Total Protein 6.5 Albumin 4.2 Globulin 2.3 Albumin/Globulin Ratio 1.8 Assessment & Plan Assessment and plan (1) New onset seizure: Status: Acute Assessment and plan: Patient with positive family history of seizures, new onset seizures with 2 episodes, of generalized tonic-clonic convulsions with tongue laceration and postictal confusion. MRI brain showed scattered white matter signal changes that are nonspecific, not consistent with demyelinating disease. Follow-up with EEG, follow seizure precautions, continue with Keppra 750 twice a day. Advised no driving for at least 6 months. No operating heavy machines/construction/climbing ladders.
[2025-09-19] VITALS: BP 98/62; PULSE 54; PULSE 56; RESP 19; TEMP 37; O2SAT 98
[2025-09-19 04:00] VITALS: BP 100/71; PULSE 51; PULSE 56; RESP 17; TEMP 36.1; O2SAT 98
[2025-09-19 05:24] VITALS: BMI 30.4
[2025-09-19 06:46] LABS: Basophils # (Auto) 0.0 Thou/mm3 (0.0-0.2); Basophils % (Auto) 0 % (0-2.5); Eosinophils # (Auto) 0.2 Thou/mm3 (0.0-0.5); Eosinophils % (Auto) 4 % (0-10); Hematocrit 41.4 % (41.0-53.0); Hemoglobin 13.7 g/dL (13.5-16.0); Immature Granulocytes Auto 0.01 Thou/mm3 (0.00-0.00); Lymphocytes # (Auto) 1.8 Thou/mm3 (1.0-4.8); Lymphocytes % (Auto) 36 % (10-50); Mean Corpuscular HGB Conc 33.1 g/dl (31.0-37.0); Mean Corpuscular Hemoglobin 30.1 pg (25.0-35.0); Mean Corpuscular Volume 91 fL (80-100); Monocytes # (Auto) 0.4 Thou/mm3 (0.0-0.8); Monocytes % (Auto) 8 % (0-12); Neutrophils # (Auto) 2.5 Thou/mm3 (1.8-7.7); Neutrophils % (Auto) 51 % (37-80); Nucleated Red Blood Cell # 0.00 Thou/mm3 (0.00-0.00); Nucleated Red Blood Cell % 0 /100 WBC (0); Platelet Count 176 Thou/mm3 (140-440); RDW Standard Deviation 40.8 fL (35.1-43.9); Red Blood Count 4.55 Miln/mm3 (4.50-5.90); White Blood Count 4.9 Thou/mm3 (3.8-10.6)
[2025-09-19 07:06] LABS: Alanine Aminotransferase 15 U/L (10-49); Albumin, Serum 3.9 gm/dL (3.5-5.0); Albumin/Globulin Ratio 1.6 (1.2-2.2); Alkaline Phosphatase 70 U/L (46-116); Anion Gap 7 (7-16); Aspartate Amino Transferase 15 U/L (0-34); BUN/Creatinine Ratio 16 Ratio (12-20); Bilirubin,Total 0.5 mg/dL (0.3-1.2); Blood Urea Nitrogen 14 mg/dL (9-23); Calcium 8.9 mg/dL (8.3-10.6); Calcium (Corrected) 9.0 mg/dL (8.5-10.1); Carbon Dioxide 25.8 mMol/L (20.0-31.0); Chloride 107 mMol/L (98-107); Creatinine (Component) 0.9 mg/dL (0.6-1.3); Estimated Creatinine Clearance 110.9 mL/min (>60); Globulin 2.4 gm/dL (2.3-3.5); Glucose 106 mg/dL (74-106); Magnesium 2.0 mg/dL (1.6-2.6); Osmolality,Calculated 279 (275-295); Phosphorous 3.2 mg/dL (2.4-5.1); Potassium 3.9 mMol/L (3.4-5.1); Sodium 140 mMol/L (136-145); Total Protein 6.3 gm/dL (5.7-8.2); eGFR > 60 See Note
[2025-09-19 08:00] VITALS: BP 109/70; PULSE 51; PULSE 56; RESP 17; TEMP 37.1; O2SAT 94
--- NOTE | 2025-09-19 09:22 | ESDS_ITS ---
<Statement entered by Patel Felix MD - 09/28/25 07:14> I reviewed above note and agree with findings and plans. I have also personally examined the patient with medicine team and went over assessment and plan with medical team including internal medicine hospitalist and resident physician. <Statement entered by Jacklyn Woods MD - 09/19/25 14:40> I discussed with and supervised the internal medicine hospitalist physician who took care of this patient. I personally saw and examined the patient and discussed the assessment and plan with the entire medicine team, including my attending , I agree with the assessment and plan as documented below Jacklyn Woods M.D. PGY-3 Disclaimer: Despite multiple revisions, due to the dictation software being used, the document bellow may not be free of grammatical errors including phonetic/typographic errors. However, this does not deter from our commitment to providing health care in the patient's best interest in mind. Planned Discharge Date 09/19/25 DS: Providers Provider Date of admission: 09/17/25 16:51 Primary care physician: Andrey Jauregui PA-C Admitting Provider: Pam Crouch DO Attending Provider on Admission: Pam Crouch DO Consults: 09/17/25 15:26 Consult to Neurology / Tele-Neurology Stat Comment: Consulting Provider: Gaye Self 09/18/25 11:28 Consult to Neurology / Tele-Neurology Routine Comment: new seizures Consulting Provider: Jassi Law Attending Provider on DC: Patel Felix MD Discharging Provider: Patel Felix MD DS: Diagnosis Problem List Completed Was Problem List Reviewed/Reconciled?: Yes Hospital Course Hospital Course Hospital course: 45-year-old male with no significant past medical history, presented BIBA after new onset seizure. The patient has a strong family history of epilepsy, with his mother experiencing onset as a child and his brother in his 20s. Patient admitted for seizure work-up ED course: In ED patient's vitals were 98.2 temperature, BP 104/62, HR 62, RR 18, saturating 98% on room air. Initial head CT was negative for acute hemorrhage, mass effect, midline shift. Electrolytes were within normal range. In the ED, the patient had a second witnessed tonic-clonic seizure after about 6.5 hours of observation, which resolved with Ativan. Teleneuro was consulted and recommended MRI, EEG, and a loading dose of 2 g of Keppra, along with initiation of IV Keppra 750mg BID. Hospital course: Patient had no further seizure episodes while admitted. EEG showed paroxysmal multifocal spike and wave discharges. MRI brain showed scattered white matter signal changes that are nonspecific, not consistent with demyelinating disease. Our neurologist, Dr. Brunner, assessed the patient and recommended the patient to follow seizure precautions, continue with Keppra 750 twice a day. Advised the patient no driving for at least 6 months. No operating heavy machines/construction/climbing ladders. At time of discharge patient is progressing towards baseline. Discharge instructions: Keppra (Levetiracetam): * Continue taking Keppra 750 mg twice a day (BID) as prescribed. * Do not stop taking Keppra abruptly, as this can increase the risk of seizures. * If you miss a dose, take it as soon as you remember, unless it's almost time for your next dose. Do not take two doses at once. * Contact your healthcare provider if you experience any side effects or if the medication is not effective. Seizure Precautions: * Avoid hazardous activities that could lead to injury in the event of a seizure (e.g., swimming, driving, operating heavy machinery). * Notify a family member, friend, or caregiver about your condition in case you need assistance during a seizure. * Driving:refrain from driving until your seizures are well-controlled (usually 6 months seizure-free). Please consult your healthcare provider for specific recommendations. Follow-Up Care: * Scheduled Appointments: Keep follow-up appointments with your neurologist or primary care provider to monitor your treatment and make adjustments if needed. * Follow-up outpatient with EEG results(brain electrical activity) * Lab Tests: You may need regular blood tests to monitor the levels of your seizure medication and check for side effects. * return to ED anytime symptoms worsens Admission diagnoses: #Tonic clonic seizures, new onset Case discussed with my attending Dr. Felix, and senior resident, Dr. Peggy Jimenez MD PGY-1 Status at Discharge Overall status at discharge: patient is back to baseline Time Spent with Patient Time attestation: Total time spent providing and/or coordinating discharge services: Time spent: Greater than 30 minutes Exam Vital Signs Temp Pulse Resp BP Pulse Ox O2 Del Method O2 Flow Rate 97.0 F 56 L 17 100/71 98 Room Air 10 09/19/25 04:00 09/19/25 04:00 09/19/25 04:00 09/19/25 04:00 09/19/25 04:00 09/19/25 04:00 09/18/25 16:00 Narrative Exam General: A/O x3, well-nourished, well-developed Eyes: PERRL, EOMI. Anicteric, vision grossly intact. Ears: No ear pain, no ear discharge, Hearing grossly intact. Nose: No nasal discharge. Mouth/Throat: Moist mucous membranes, no redness, right tongue wound, lip wound secondary to biting Neck: Neck supple, non-tender, no cervical lymphadenopathy. Lungs: Clear HARJINDER to auscultation and percussion, No accessory muscle use. Cardio: Normal S1/S2, regular rhythm, no murmurs, no JVD or carotid bruits. Abdomen: Soft, non-tender, no palpable masses, peristalsis present, no guarding or rebound. Extremities: Symmetrical, no significant deformities, no peripheral edema , non-tender, peripheral pulses present. Skin: No rashes, no lesions, warm to touch. Neuro: No focal neurological deficits. Psych: Cooperative; nomal affect and mood Discharge Plan Plan Patient Disposition: HOME (Self Care) Care Plan Goals: Keppra (Levetiracetam): * Continue taking Keppra 750 mg twice a day (BID) as prescribed. * Do not stop taking Keppra abruptly, as this can increase the risk of seizures. * If you miss a dose, take it as soon as you remember, unless it's almost time for your next dose. Do not take two doses at once. * Contact your healthcare provider if you experience any side effects or if the medication is not effective. Seizure Precautions: * Avoid hazardous activities that could lead to injury in the event of a seizure (e.g., swimming, driving, operating heavy machinery). * Notify a family member, friend, or caregiver about your condition in case you need assistance during a seizure. * Driving:refrain from driving until your seizures are well-controlled (usually 6 months seizure-free). Please consult your healthcare provider for specific recommendations. Follow-Up Care: * Scheduled Appointments: Keep follow-up appointments with your neurologist or primary care provider to monitor your treatment and make adjustments if needed. * Follow-up outpatient with EEG results(brain electrical activity) * Lab Tests: You may need regular blood tests to monitor the levels of your seizure medication and check for side effects. * return to ED anytime symptoms worsens Prescriptions/Referrals Prescriptions/Med Rec: New levetiracetam [Keppra] 750 mg tablet 750 mg PO Q12H 30 Days Qty: 60 0RF Referrals: Andrey Jauregui PA-C [Primary Care Provider] Patient/Caregiver Discharge Instructions Discharge Activity: activity as tolerated Other Discharge Activity Instructions:: Please do not drive or operate any heavy machinery. Education Materials: ED Seizure, Recurrent (Adult), ED Seizure New Onset Unknown ... Print Language: [place] Stand Alone Forms: Camila Award Info., Patient Portal Info Letter Discharge Order Discharge Orders: Discharge (Routine); Ordered 09/19/25 Ordered By: Jacklyn Woods Quality Discharge Quality Measures VTE prophylaxis
[2025-09-19 12:00] VITALS: BP 105/63; PULSE 53; PULSE 55; RESP 16; TEMP 37.2; O2SAT 96
[2025-09-19 13:40] VITALS: BP 117/68; PULSE 54; RESP 18; TEMP 37.2; O2SAT 96
== END 2025-09-19 13:43 | disposition home or self-care (01) | DRG 53 ==
LOC: SERX 17:39 → S2NX 19:02 → SERHOLD 09-19 06:02 → S2NX 09-19 06:03
PROVIDERS: Admitting Provider Internal Medicine; Emergency Provider Emergency Medicine; PCP Physician Assistant; Visit Provider Internal Medicine
DX: R56.9 Unspecified convulsions (principal); Z82.0 Family history of epilepsy and other diseases of the nervous system
CPT/HCPCS: 36415; 70450; 70551; 71045; 80053; 80307; 80320; 83690; 83735; 83880; 84100; 84484; 85025; 85610; 85730; 93005; 95816; 96374; 96375; 96376; 99284; J1953; J2060; J2405; A9270; G0480